=== PATIENT | female | born 1975 | race African-American/Black ===

== ENCOUNTER 2019-10-15 16:55 | Emergency (ER) | payer MEDICAID ==
[2019-10-15] MEDS ORDERED: DICYCLOMINE HCL 20 MG TABLET PO ONE (17:10)
[2019-10-15] MEDS ORDERED: NORMAL SALINE 1000 ML 1,000 ML IV ONE (17:11)
[2019-10-15] MEDS ORDERED: ONDANSETRON HCL INJ/PF 4 MG/2 ML SDV IV ONE (17:12)
--- NOTE | 2019-10-15 17:13 | ER Document Report ---
ED Medical Screen (RME) - General Chief Complaint: Abdominal Pain Stated Complaint: ABDOMINAL PAIN Time Seen by Provider: 10/15/19 17:00 Notes: Patient is a 44-year-old female with a past history of a hysterectomy who presents emergency department with a chief complaint of abdominal pain. Patient states that her symptoms started yesterday. Patient states that she feels her abdomen is cramping. States that her pain is in her mid abdomen, just above her umbilicus. States that she has some nausea, but has not vomited. States that she had a small bowel movement yesterday. Patient also admits to having some vaginal irritation during coitus the other day. Exam: Moderately tender mid upper abdomen. I have greeted and performed a rapid initial assessment of this patient. A comprehensive ED assessment and evaluation of the patient, analysis of test results and completion of medical decision making process will be conducted by an additional ED providers. TRAVEL OUTSIDE OF THE [place] IN LAST 30 DAYS: No - Related Data Allergies/Adverse Reactions: No Known Allergies Allergy (Verified 07/28/14 14:05) Past Medical History - Past Medical History Cardiac Medical History: Pulmonary Medical History: Reports: Hx Bronchitis Denies: Hx Asthma Neurological Medical History: GI Medical History: Reports: Hx Gastroesophageal Reflux Disease, Hx Colonoscopy, Hx Endoscopy Musculoskeltal Medical History: Infectious Medical History: Past Surgical History: Reports: Hx Section - 4, Hx Cholecystectomy - 2008, Hx Tubal Ligation - Immunizations Immunizations up to date: No Hx Diphtheria, Pertussis, Tetanus Vaccination: No Physical Exam - Vital signs Vitals: Temp Pulse Resp BP Pulse Ox 98.4 F 90 20 168/113 H 99 10/15/19 16:59 10/15/19 16:59 10/15/19 16:59 10/15/19 16:59 10/15/19 16:59 Course - Vital Signs Vital signs: Temp Pulse Resp BP Pulse Ox 98.4 F 90 20 151/104 H 99 10/15/19 16:59 10/15/19 16:59 10/15/19 16:59 10/15/19 17:01 10/15/19 16:59
--- NOTE | 2019-10-15 17:51 | ER Document Report ---
ED GI/ - General Chief Complaint: Abdominal Pain Stated Complaint: ABDOMINAL PAIN Time Seen by Provider: 10/15/19 17:00 Mode of Arrival: Ambulatory Information source: Patient Notes: 44-year-old female past medical history significant for hypertension, cervical cancer presents to the emergency room complaining of generalized sharp and cramping abdominal pain that started last night. States pain has been constant. Slightly improved today. Denies any nausea, vomiting, no fevers. No urinary symptoms. No recent travel. No COVID-19 exposure. States she took Pepto- Bismol and Tylenol with some relief. Eating and drinking normally. Denies any vaginal discharge is complaining of vaginal irritation. TRAVEL OUTSIDE OF THE [place] IN LAST 30 DAYS: No - Related Data Allergies/Adverse Reactions: No Known Allergies Allergy (Verified 07/28/14 14:05) Past Medical History - General Information source: Patient - Social History Smoking Status: Never Smoker Frequency of alcohol use: None Drug Abuse: None Family History: Reviewed & Not Pertinent Patient has homicidal ideation: No - Past Medical History Cardiac Medical History: Pulmonary Medical History: Reports: Hx Bronchitis Denies: Hx Asthma Neurological Medical History: GI Medical History: Reports: Hx Gastroesophageal Reflux Disease, Hx Colonoscopy, Hx Endoscopy Musculoskeletal Medical History: Infectious Medical History: Past Surgical History: Reports: Hx Section - 4, Hx Cholecystectomy - 2009, Hx Tubal Ligation - Immunizations Immunizations up to date: No Hx Diphtheria, Pertussis, Tetanus Vaccination: No Review of Systems - Review of Systems Constitutional: No symptoms reported Cardiovascular: No symptoms reported Respiratory: No symptoms reported Gastrointestinal: Abdominal pain. denies: Diarrhea, Nausea, Vomiting, Constipation Genitourinary: No symptoms reported Musculoskeletal: No symptoms reported Skin: No symptoms reported Neurological/Psychological: No symptoms reported -: Yes All other systems reviewed and negative Physical Exam - Vital signs Vitals: Temp Pulse Resp BP Pulse Ox 98.4 F 90 20 168/113 H 99 10/15/19 16:59 10/15/19 16:59 10/15/19 16:59 10/15/19 16:59 10/15/19 16:59 - General General appearance: Appears well, Alert In distress: Mild - HEENT Head: Normocephalic, Atraumatic Eyes: Normal Pupils: PERRL - Respiratory Respiratory status: No respiratory distress Chest status: Nontender Breath sounds: Normal Chest palpation: Normal - Cardiovascular Rhythm: Regular Heart sounds: Normal auscultation Murmur: No - Abdominal Inspection: Normal Distension: No distension Bowel sounds: Normal Tenderness: Tender - Generalized tenderness on palpation, no guarding, no rebound Organomegaly: No organomegaly - Genitourinary External exam: Normal Speculum exam: Vaginal discharge - Thick white discharge was noted in the vaginal vault. Status post hysterectomy. No inflammation to vaginal cuff Vaginal bleeding: None Bimanuel exam: Normal - Back Back: Normal, Nontender. No: CVA tenderness - Neurological Neuro grossly intact: Yes Cognition: Normal Orientation: AAOx4 [place] Coma Scale Eye Opening: Spontaneous [place] Coma Scale Verbal: Oriented [place] Coma Scale Motor: Obeys Commands [place] Coma Scale Total: 15 Speech: Normal Motor strength normal: LUE, RUE, LLE, RLE Sensory: Normal - Skin Skin Temperature: Warm Skin Moisture: Dry Skin Color: Normal Course - Re-evaluation Re-evalutation: 10/15/19 19:57 Patient is resting comfortably all test results were reviewed with the patient. Discussed need for pelvic exam secondary to elevated white count, urine with leukocytosis. Patient is agreeable to pelvic exam. 10/15/19 21:16 Pelvic exam completed. Patient aware that we are waiting on the vaginal swabs prior to discharge. 10/15/19 21:46 Test results were reviewed with the patient. She was counseled on the importance of follow-up outpatient with her primary care physician to discuss all the abnormal findings that were noted on her CT scan. Take tramadol as prescribed for her pain. E force was reviewed okay to write for prescriptions. No history of narcotic abuse. Patient was given strict return to the emergency room guidelines. Return for any new or worsening symptoms. All questions were answered. Patient verbalized understanding and agrees with plan of care. - Vital Signs Vital signs: Temp Pulse Resp BP Pulse Ox 97.3 F 79 16 153/118 H 97 10/15/19 22:12 10/15/19 22:12 10/15/19 22:12 10/15/19 22:12 10/15/19 22:12 - Laboratory Result Diagrams: 10/15/19 17:40 10/15/19 17:40 Laboratory results interpreted by me: 10/15/19 10/15/19 10/15/19 17:40 17:40 17:40 WBC 13.2 H RDW 14.6 H Eos % (Auto) 7.8 H Absolute Eos (auto) 1.0 H Total Protein 8.4 H Lipase 470.1 H Urine Protein 30 H Ur Leukocyte Esterase SMALL H - Diagnostic Test Radiology reviewed: Reports reviewed Discharge - Discharge Clinical Impression: Right adrenal mass, Left ovarian cyst, Calculus of right kidney, Diverticulosis, Elevated lipase Condition: Stable Disposition: HOME, SELF-CARE Instructions: Abdominal Pain ([facility]), Kidney Stone ([facility]), Ovarian Cyst ([facility]) Prescriptions: Tramadol HCl [Ultram 50 mg Tablet] 50 mg PO Q6HP PRN #12 tab PRN Reason: For Pain
[2019-10-15 18:17] LABS: ABSOLUTE LYMPHOCYTES (AUTO) 3.6 10^3/uL (0.5-4.7); ABSOLUTE NEUT (AUTO) 7.6 10^3/uL (1.7-8.2); BASOPHILS % (AUTO) 0.2 % (0-2); EOSINOPHILS % (AUTO) 7.8 % (0-6); HEMATOCRIT 41.6 % (36.0-47.0); HEMOGLOBIN 13.7 g/dL (12.0-15.5); LYMPHOCYTES % (AUTO) 27.5 % (13-45); MEAN CORPUSCULAR HEMOGLOBIN 29.2 pg (27.0-33.4); MEAN CORPUSCULAR HGB CONC 32.9 g/dL (32.0-36.0); MEAN CORPUSCULAR VOLUME 89 fl (80-97); MONOCYTES % (AUTO) 7.3 % (3-13); PLATELET COUNT 336 10^3/uL (150-450); RED BLOOD COUNT 4.69 10^6/uL (3.72-5.28); RED CELL DISTRIBUTION WIDTH 14.6 % (11.5-14.0); SEGMENTED NEUTROPHILS % (AUTO) 57.2 % (42-78); TOTAL CELLS COUNTED % (AUTO) 100 %; WHITE BLOOD COUNT 13.2 10^3/uL (4.0-10.5)
[2019-10-15 18:26] LABS: APPEARANCE,URINE SLIGHTLY-CLOUDY; BILIRUBIN,URINE NEGATIVE (NEGATIVE); COLOR,URINE YELLOW; GLUCOSE, URINE NEGATIVE (NEGATIVE); KETONES,URINE NEGATIVE (NEGATIVE); LEUKOCYTE ESTERASE,URINE SMALL (NEGATIVE); NITRITE,URINE NEGATIVE (NEGATIVE); PROTEIN,URINE 30 mg/dL (NEGATIVE); URINE SPECIFIC GRAVITY 1.021; UROBILINOGEN,URINE NEGATIVE mg/dL (<2.0)
[2019-10-15 18:33] LABS: ALBUMIN 4.6 g/dL (3.5-5.0); ALKALINE PHOSPHATASE 83 U/L (38-126); ANION GAP 7 (5-19); ASPARTATE AMINO TRANSFERASE 24 U/L (14-36); BILIRUBIN,TOTAL 0.3 mg/dL (0.2-1.3); BLOOD UREA NITROGEN 19 mg/dL (7-20); CALCIUM 10.2 mg/dL (8.4-10.2); CARBON DIOXIDE 29 mmol/L (22-30); CHLORIDE 102 mmol/L (98-107); GLUCOSE 83 mg/dL (75-110); POTASSIUM 4.7 mmol/L (3.6-5.0); TOTAL PROTEIN 8.4 g/dL (6.3-8.2)
--- NOTE | 2019-10-15 19:33 | RADIOLOGY REPORT (SQ) ---
EXAM DESCRIPTION: CT ABD/PELVIS WITH IV ONLY IMAGES COMPLETED DATE/TIME: 10/15/2019 7:00 pm REASON FOR STUDY: abdominal pain Diffuse abdominal pain. COMPARISON: CT abdomen and pelvis 07/28/2014 TECHNIQUE: CT scan of the abdomen and pelvis performed using helical scanning technique with dynamic intravenous contrast injection. No oral contrast. Images reviewed with lung, soft tissue, and bone windows. Reconstructed coronal and sagittal MPR images reviewed. Delayed images for evaluation of the urinary system also acquired. All images stored on PACS. All CT scanners at this facility use dose modulation, iterative reconstruction, and/or weight based d osing when appropriate to reduce radiation dose to as low as reasonably achievable (ALARA). [facility]: Dose Right [facility]: CareDose [facility]: Dose Right [facility]: Teradose 4D [facility]: RVX CONTRAST TYPE AND DOSE: contrast/concentration: Isovue 350.00 mmol/ml; Total Contrast Delivered: 100 .0 ml; Total Saline Delivered: 72.0 ml RENAL FUNCTION: None required. The patient is less than 50 years old. RADIATION DOSE: CT Rad equipment meets quality standard of care and radiation dose reduction techniq ues were employed. CTDIvol: 16.7 - 19.8 mGy. DLP: 1924 mGy-cm.. LIMITATIONS: None. FINDINGS: LOWER CHEST: No consolidation or pleural. LIVER: Enlarged, measuring 20 cm cranio caudally. No masses. No dilated ducts. SPLEEN: Normal size. No focal lesions. PANCREAS: No significant calcifications. No adjacent inflammation or peripancreatic fluid collections . Pancreatic duct not dilated. GALLBLADDER: Surgically absent. ADRENAL GLANDS: There is a 2.7 x 2.7 cm hypodense lesion at the right adrenal gland, this measures 2. 2 x 2[address] abdomen and pelvis 07/28/2014. The left adrenal gland is unremarkable. RIGHT KIDNEY AND URETER: No solid masses. Nonobstructing calculi at the right kidney measuring 2-3 mm. No hydronephrosis or hydroureter. LEFT KIDNEY AND URETER: No solid masses. No significant calcifications. No hydronephrosis or hydr oureter. AORTA AND VESSELS: No abdominal aortic aneurysm or evidence for acute dissection. RETROPERITONEUM: No retroperitoneal adenopathy, hemorrhage or masses. BOWEL AND PERITONEAL CAVITY: No dilated bowel loops to suggest obstruction. No focal inflammatory ch anges. No free fluid or free air. APPENDIX: Normal. PELVIS: The urinary bladder is partially distended. The uterus is surgically absent. There is a 2.7 cm cyst at the right ovary. No free fluid ABDOMINAL WALL: Postsurgical changes are noted at the anterior abdominal wall. There is a ventral he rnia at the anterior lower abdominal wall with a small bowel loop protruding into the hernia defect. Small fat containing umbilical hernia. BONES: Multilevel degenerative changes at the spine. IMPRESSION: 1. No acute findings. 2. Right nephrolithiasis. 3. 2.7 cm cyst at the right ovary. 4. Colonic diverticulosis. 5. Mild interval increase in the indeterminate lesion at the right adrenal gland. Nonemergent dedica delbert adrenal CT or MRI recommended for further evaluation. 6. Hepatomegaly. 7. Ventral hernia at the anterior lower abdominal wall with a small bowel loop protruding into the h ernia defect. No evidence for bowel obstruction. TECHNICAL DOCUMENTATION: JOB ID: [id number] OR-64 Quality ID # [id number]: Final reports with documentation of one or more dose reduction techniques (e.g., Au tomated exposure control, adjustment of the mA and/or kV according to patient size, use of iterative reconstruction technique) 2010 [employer]- All Rights Reserved Reading location - IP/workstation name: [email or web address]
[2019-10-15 21:24] LABS: RBCS (WET MOUNT) NO RBCS SEEN; T.VAGINALIS (WET MOUNT) NO TRICHOMONAS SEEN; WBCS (WET MOUNT) RARE WBCS SEEN; YEAST (WET MOUNT) NO YEAST SEEN
[2019-10-15 22:15] VITALS: BP 153/118
[2019-10-15 22:48] LABS: CHLAM PCR NOT DETECTED (NOT DETECT)
== END 2019-10-15 22:12 | disposition home or self-care (01) ==
LOC: ER 16:55
DX: N20.0 Calculus of kidney (principal); E27.8 Other specified disorders of adrenal gland; N83.202 Unspecified ovarian cyst, left side; K57.90 Diverticulosis of intestine, part unspecified, without perforation or abscess without bleeding; R79.89 Other specified abnormal findings of blood chemistry
CPT/HCPCS: 99284; 96361; 96374; 36415; 87210; 83690; 85025; 80053; 81001; 87491; 87591; 74177; J3490; J2405; J7030

== ENCOUNTER 2019-12-10 15:25 | Emergency (ER) | payer MEDICAID ==
--- NOTE | 2019-12-10 16:29 | ER Document Report ---
ED Medical Screen (RME) - General Chief Complaint: Headache Stated Complaint: HEADACHE,COUGH,NAUSEA Time Seen by Provider: 12/10/19 16:13 Mode of Arrival: Ambulatory Information source: Patient Notes: HPI; 44-year-old female presents to the emergency room complaining of a cough with shortness of breath for the past month. States is gotten progressively worse over the past week. She denies any fevers. No recent travel. No COVID- 19 exposure. States she is been using [id number] NyQuil without relief. PE: Alert and oriented x3. Lungs scattered rhonchi no wheezes no rales. Heart: Regular rate rhythm without murmurs, rubs, gallops. I have greeted and performed a rapid initial assessment of this patient. A comprehensive ED assessment and evaluation of the patient, analysis of test results and completion of the medical decision making process will be conducted by additional ED providers. I have specifically instructed the patient or family members with the patient to immediately return to any nursing staff should anything change in the patient's condition or with their chief complaint. TRAVEL OUTSIDE OF THE [place] IN LAST 30 DAYS: No - Related Data Allergies/Adverse Reactions: No Known Allergies Allergy (Verified 07/28/14 14:05) Past Medical History - Past Medical History Cardiac Medical History: Pulmonary Medical History: Reports: Hx Bronchitis Denies: Hx Asthma Neurological Medical History: GI Medical History: Reports: Hx Gastroesophageal Reflux Disease, Hx Colonoscopy, Hx Endoscopy Musculoskeltal Medical History: Infectious Medical History: Past Surgical History: Reports: Hx Section - 4, Hx Cholecystectomy - 2009, Hx Tubal Ligation - Immunizations Immunizations up to date: No Hx Diphtheria, Pertussis, Tetanus Vaccination: No Physical Exam - Vital signs Vitals: Temp Pulse Resp BP Pulse Ox 98.9 F 84 20 157/112 H 95 12/10/19 15:59 12/10/19 15:59 12/10/19 15:59 12/10/19 15:59 12/10/19 15:59 Course - Vital Signs Vital signs: Temp Pulse Resp BP Pulse Ox 98.9 F 84 20 157/112 H 95 12/10/19 15:59 12/10/19 15:59 12/10/19 15:59 12/10/19 15:59 12/10/19 15:59
[2019-12-10 18:13] LABS: ABSOLUTE BASOPHILS # (AUTO) 0.1 10^3/uL (0.0-0.2); ABSOLUTE EOSINOPHILS # (AUTO) 0.9 10^3/uL (0.0-0.6); ABSOLUTE LYMPHOCYTES (AUTO) 2.3 10^3/uL (0.5-4.7); ABSOLUTE MONOCYTES (AUTO) 0.6 10^3/uL (0.1-1.4); ABSOLUTE NEUT (AUTO) 5.7 10^3/uL (1.7-8.2); BASOPHILS % (AUTO) 0.9 % (0-2); EOSINOPHILS % (AUTO) 9.2 % (0-6); HEMATOCRIT 40.6 % (36.0-47.0); HEMOGLOBIN 14.2 g/dL (12.0-15.5); LYMPHOCYTES % (AUTO) 24.3 % (13-45); MEAN CORPUSCULAR HEMOGLOBIN 31.4 pg (27.0-33.4); MEAN CORPUSCULAR VOLUME 90 fl (80-97); MONOCYTES % (AUTO) 6.2 % (3-13); PLATELET COUNT 354 10^3/uL (150-450); RED BLOOD COUNT 4.52 10^6/uL (3.72-5.28); SEGMENTED NEUTROPHILS % (AUTO) 59.4 % (42-78); TOTAL CELLS COUNTED % (AUTO) 100 %; WHITE BLOOD COUNT 9.7 10^3/uL (4.0-10.5)
[2019-12-10 18:26] LABS: ALBUMIN 4.5 g/dL (3.5-5.0); ALKALINE PHOSPHATASE 97 U/L (38-126); ANION GAP 10 (5-19); ASPARTATE AMINO TRANSFERASE 29 U/L (14-36); BILIRUBIN,DIRECT 0.2 mg/dL (0.0-0.4); BILIRUBIN,TOTAL 0.3 mg/dL (0.2-1.3); BLOOD UREA NITROGEN 18 mg/dL (7-20); CARBON DIOXIDE 29 mmol/L (22-30); CHLORIDE 103 mmol/L (98-107); GLUCOSE 95 mg/dL (75-110); POTASSIUM 3.8 mmol/L (3.6-5.0); TOTAL PROTEIN 8.4 g/dL (6.3-8.2)
--- NOTE | 2019-12-10 20:28 | RADIOLOGY REPORT (SQ) ---
EXAM DESCRIPTION: X-ray, single view of the chest CLINICAL HISTORY: 44 years Female, cough COMPARISON: Two views of the chest May 10, 2012 FINDINGS: Exam is overpenetrated. Lungs: Lungs are clear. No pneumonia or edema. No pneumothorax or pleural effusion. Mediastinum: Cardiac and mediastinal silhouette are normal. Bones: Osseous structures are normal. IMPRESSION: No acute process. No significant interval change.
[2019-12-10 21:07] VITALS: BP 176/116
[2019-12-10] MEDS ORDERED: CETIRIZINE 10 MG TABLET PO ONE (21:30)
[2019-12-10] MEDS ORDERED: PREDNISONE 20 MG TABLET PO ONE (21:30)
[2019-12-10] MEDS ORDERED: BENZONATATE 100 MG CAPSULE PO ONE (21:30)
[2019-12-10] MEDS ORDERED: IPRATROPIUM/ALBUTEROL 0.5-2.5 MG/3 ML AMPUL NEB ONE (21:30)
[2019-12-10] MEDS ORDERED: ACETAMINOPHEN 325 MG TABLET PO ONE (21:31)
--- NOTE | 2019-12-10 21:32 | ER Document Report ---
ED Headache - General Chief Complaint: Cough Stated Complaint: HEADACHE,COUGH,NAUSEA Time Seen by Provider: 12/10/19 16:13 Mode of Arrival: Ambulatory Notes: Patient is a 44-year-old female with a history of hypertension who presents emergency department with a cough, headache, congestion, and generally not feeling well for the past about month. She states that she continues to cough. She has not seen her primary care provider regards to this issue. Denies any contact with any when he was tested positive for COVID-19. Patient has a history of bronchitis in the past. States that she has been coughing so much, gives her headache. She has not taken any Tylenol pain or headache. TRAVEL OUTSIDE OF THE [place] IN LAST 30 DAYS: No - Related Data Allergies/Adverse Reactions: No Known Allergies Allergy (Verified 07/28/14 14:05) Home Medications: has meds Past Medical History - General Information source: Patient - Social History Smoking Status: Never Smoker Frequency of alcohol use: None Drug Abuse: None Family History: Reviewed & Not Pertinent - Past Medical History Cardiac Medical History: Reports: Hx Hypertension Pulmonary Medical History: Reports: Hx Bronchitis Denies: Hx Asthma Neurological Medical History: GI Medical History: Reports: Hx Gastroesophageal Reflux Disease, Hx Colonoscopy, Hx Endoscopy Musculoskeletal Medical History: Infectious Medical History: Past Surgical History: Reports: Hx Section - 5, Hx Cholecystectomy - 2009, Hx Hysterectomy, Hx Tubal Ligation - Immunizations Immunizations up to date: No Hx Diphtheria, Pertussis, Tetanus Vaccination: No Review of Systems - Review of Systems Notes: REVIEW OF SYSTEMS: CONSTITUTIONAL : Denies recent illness. Denies recent unintentional weight loss. Denies fever, chills, or sweats. EENT: See HPI. CARDIOVASCULAR: Denies chest pain. RESPIRATORY: See HPI. GASTROINTESTINAL: Denies nausea, vomiting, and diarrhea. Denies abdominal pain. Denies constipation. GENITOURINARY: Denies difficulty urinating, burning, blood in urine, urgency or frequency. MUSCULOSKELETAL: Denies neck and back pain. Denies joint pain or swelling. SKIN: Denies rash, itchiness, or lesions HEMATOLOGIC : Denies easy bruising or bleeding. LYMPHATIC: Denies swollen, painful, enlarged glands. NEUROLOGICAL: Denies no numbness or tingling denies weakness. Denies headache. Denies altered mental status. Denies alteration in speech. PSYCHIATRIC: Denies stress, anxiety, alteration in sleep patterns, or depres roxanna. All other systems reviewed and negative. Physical Exam - Vital signs Vitals: Temp Pulse Resp BP Pulse Ox 98.9 F 84 20 157/112 H 95 12/10/19 15:59 12/10/19 15:59 12/10/19 15:59 12/10/19 15:59 12/10/19 15:59 - Notes Notes: PHYSICAL EXAMINATION: GENERAL: Appears well, healthy, well-nourished, no acute distress. HEAD: Normocephalic, atraumatic. EYES: PERRL, conjunctiva normal, all extraocular movements intact, sclera nonicteric ENT: Moist mucous membranes. NECK: Supple, no noticeable swelling, redness, rash. Normal range of motion. LUNGS: Slight expiratory wheezes noted throughout all lung cordon. CARDIOVASCULAR: S1-S2, regular rate, regular rhythm. Radial pulses 2+, normal. ABDOMEN: Normoactive bowel sounds. Soft, nontender, no guarding, no rebound tenderness, and no masses palpated. EXTREMITIES: Normal strength and range of motion, no pitting or edema. No cyanosis. NEUROLOGICAL: Moves all extremities upon command. Strength 5/5 in all extremities. PSYCH: Normal mood, normal affect. SKIN: Warm, dry. No rash, lesions, ulcerations noted. Normal skin turgor. Course - Re-evaluation Re-evalutation: 12/10/19 22:46 Patient states that she feels better after receiving duo nebs, Tessalon Perles, prednisone, and cetirizine. We will treat the patient for bronchitis. Advised patient to be tested for COVID on an outpatient basis. Recommended COVID testing here, but she refused. Follow-up precautions were given. Verbal discharge instructions were given to the patient. They verbalized understanding. They are stable for discharge. - Vital Signs Vital signs: Temp Pulse Resp BP Pulse Ox 98.9 F 75 20 176/116 H 96 12/10/19 20:58 12/10/19 20:58 12/10/19 20:58 12/10/19 20:58 12/10/19 20:58 - Laboratory Result Diagrams: 12/10/19 17:30 12/10/19 17:30 Laboratory results interpreted by me: 12/10/19 12/10/19 17:30 17:30 Eos % (Auto) 9.2 H Absolute Eos (auto) 0.9 H ALT 40 H Total Protein 8.4 H Discharge - Discharge Clinical Impression: Cough Headache Qualifiers: Headache type: unspecified Headache chronicity pattern: acute headache Intractability: not intractable Qualified Code(s): R51.9 - Headache, unspecified Condition: Stable Disposition: HOME, SELF-CARE Additional Instructions: You were seen for symptoms most consistent with bronchitis. This can take up to 12 weeks to fully resolve. This is generally due to a viral infection. Please follow-up with your primary doctor in the next 2-3 days. Return if you develop worsening cough, vomiting, fever >100.4, pass out, begin coughing blood, or have any other symptoms that are concerning to you. Please use the medications prescribed today as directed. I recommend that you get tested for COVID-19 on an outpatient basis since you did not get tested here. Follow-up with your primary care provider on Thursday. Prescriptions: Cetirizine HCl [All Day Allergy] 10 mg PO DAILY #30 tablet Prednisone [Deltasone 20 mg Tablet] 3 tab PO DAILY 5 Days #15 tablet Fluticasone Propionate [Flonase Nasal [place] 50 Mcg/[place] 16 gm] 2 sprays NASL DAILY #1 inhaler Benzonatate [Tessalon Perles 100 mg Capsule] 100 mg PO Q8HP PRN #40 capsule PRN Reason:
[2019-12-10 21:44] LABS: A TYPE INFLUENZA AG NEGATIVE (NEGATIVE); B INFLUENZA AG NEGATIVE (NEGATIVE)
[2019-12-10] MEDS ORDERED: ALBUTEROL SULFATE HFA (90 MCG/PUFF) 8 GM MDI (1 MDI/ER DISP) IH PRN (23:05)
== END 2019-12-10 23:36 | disposition home or self-care (01) ==
LOC: ER 15:25
DX: J40 Bronchitis, not specified as acute or chronic (principal); R05 Cough; R51.9 Headache, unspecified; I10 Essential (primary) hypertension; Z79.899 Other long term (current) drug therapy
CPT/HCPCS: 94640; 99284; 36415; 85025; 80053; 87804; 71045; J3490 ×4; J7512

== ENCOUNTER 2019-12-30 20:31 | Emergency (ER) | payer MEDICAID ==
[2019-12-30] MEDS ORDERED: IPRATROPIUM/ALBUTEROL 0.5-2.5 MG/3 ML AMPUL NEB ONE (21:07)
[2019-12-30] MEDS ORDERED: PREDNISONE 20 MG TABLET PO ONE (21:07)
--- NOTE | 2019-12-30 21:09 | ER Document Report ---
ED Medical Screen (RME) - General Chief Complaint: Shortness Of Breath Stated Complaint: SHORTNESS OF BREATH/COUGH/NAUSEA Time Seen by Provider: 12/30/19 21:01 Information source: Patient Notes: Patient presents complaining of cough with shortness of breath for the past week. Patient reports nausea without any vomiting or diarrhea. Patient complains of chest pain with coughing only. Patient denies any fever. Patient states she was treated for bronchitis earlier this month and had finished her steroids. Patient reports a history of hypertension. I have greeted and performed a rapid initial assessment of this patient. A comprehensive ED assessment and evaluation of the patient, analysis of test results and completion of the medical decision making process will be conducted by additional ED providers. TRAVEL OUTSIDE OF THE [place] IN LAST 30 DAYS: No - Related Data Allergies/Adverse Reactions: No Known Allergies Allergy (Verified 07/28/14 14:05) Past Medical History - Past Medical History Cardiac Medical History: Reports: Hx Hypertension Pulmonary Medical History: Reports: Hx Bronchitis Denies: Hx Asthma Neurological Medical History: GI Medical History: Reports: Hx Gastroesophageal Reflux Disease, Hx Colonoscopy, Hx Endoscopy Musculoskeltal Medical History: Infectious Medical History: Past Surgical History: Reports: Hx Section - 5, Hx Cholecystectomy - 2008, Hx Hysterectomy, Hx Tubal Ligation - Immunizations Immunizations up to date: No Hx Diphtheria, Pertussis, Tetanus Vaccination: No Physical Exam - Vital signs Vitals: Temp Pulse Resp BP Pulse Ox 98.3 F 97 16 169/117 H 97 12/30/19 20:37 12/30/19 20:37 12/30/19 20:37 12/30/19 20:37 12/30/19 20:37 - Respiratory Respiratory status: No respiratory distress Breath sounds: Nonproductive cough, Wheezing Course - Vital Signs Vital signs: Temp Pulse Resp BP Pulse Ox 98.3 F 97 16 169/117 H 97 12/30/19 20:37 12/30/19 20:37 12/30/19 20:37 12/30/19 20:37 12/30/19 20:37
--- NOTE | 2019-12-30 22:15 | ER Document Report ---
ED Respiratory Problem - General Chief Complaint: Shortness Of Breath Stated Complaint: SHORTNESS OF BREATH/COUGH/NAUSEA Time Seen by Provider: 12/30/19 21:01 Primary Care Provider: KYLAH MITCHELL PA-C [Primary Care Provider] - Follow up as needed Notes: CHIEF COMPLAINT: Cough and wheezing for 5 days HPI: 44-year-old female who does not smoke presenting for cough and wheezing for 5 days was here for something similar a month ago states that she took the medications and got better. No chest pain. Has had significant coughing. Went to her PCP 2 days ago was given an albuterol inhaler but has not had resolution of the coughing episodes. Patient states she did take her blood pressure medications today. ROS: See HPI - all other systems were reviewed and are otherwise negative Constitutional: no fever Eyes: no drainage, no blurred vision ENT: no runny nose, no sore throat Cardiovascular: no chest pain Resp: + SOB, + cough GI: no vomiting, no diarrhea, no abdominal pain : no dysuria Integumentary: no rash Allergy: no hives Musculoskeletal: no extremity pain or swelling Neurological: no numbness/tingling, no weakness MEDICATIONS: I agree with the patient medications as charted by the RN. ALLERGIES: I agree with the allergies as charted by the RN. PAST MEDICAL HISTORY/PAST SURGICAL HISTORY: Reviewed and agree as charted by RN. SOCIAL HISTORY: Reviewed and agree as charted by RN. FAMILY HISTORY: No significant familial comorbid conditions directly related to patient complaint EXAM: Reviewed vital signs as charted by RN. CONSTITUTIONAL: Alert and oriented and responds appropriately to questions. Well-appearing; well-nourished HEAD: Normocephalic; atraumatic EYES: PERRL; Conjunctivae clear, sclerae non-icteric ENT: normal nose; no rhinorrhea; moist mucous membranes; pharynx without lesions noted, no uvula edema or deviation, no tonsillar hypertrophy, phonation normal NECK: Supple without meningismus; non-tender; no cervical lymphadenopathy, no masses CARD: RRR; no murmurs, no clicks, no rubs, no gallops; symmetric distal pulses RESP: Normal chest excursion without splinting or tachypnea; breath sounds noted to have fine expiratory wheezing in all lung cordon, no rhonchi, no rales, pulse oximetry 97% on room air not hypoxic ABD/GI: Normal bowel sounds; non-distended; soft, non-tender, no rebound, no guarding; no palpable organomegaly or masses. BACK: The back appears normal and is non-tender to palpation, there is no CVA tenderness EXT: Normal ROM in all joints; non-tender to palpation; no cyanosis, no effusions, no edema SKIN: Normal color for age and race; warm; dry; good turgor; no acute lesions noted NEURO: Moves all extremities equally; Motor and sensory function intact PSYCH: The patient's mood and manner are appropriate. Grooming and personal hygiene are appropriate. MDM: 44-year-old female presenting with upper respiratory symptoms for 5 days. Active wheezing noted. Breathing treatment and steroids ordered via triage process we will plan to reassess. She has no chest pain suggesting ACS. Chest x-ray does not show evidence of infiltrate on my review. Patient was moderately hypertensive here has history of hypertension states she did take her blood pressure medications. Will have nursing manually rechecked pressure. TRAVEL OUTSIDE OF THE [place] IN LAST 30 DAYS: No - Related Data Allergies/Adverse Reactions: No Known Allergies Allergy (Verified 07/28/14 14:05) Past Medical History - General Information source: Patient - Social History Smoking Status: Unknown if Ever Smoked Family History: Reviewed & Not Pertinent - Past Medical History Cardiac Medical History: Reports: Hx Hypertension Pulmonary Medical History: Reports: Hx Bronchitis Denies: Hx Asthma Neurological Medical History: GI Medical History: Reports: Hx Gastroesophageal Reflux Disease, Hx Colonoscopy, Hx Endoscopy Musculoskeletal Medical History: Infectious Medical History: Past Surgical History: Reports: Hx Section - , Hx Cholecystectomy - 2008, Hx Hysterectomy, Hx Tubal Ligation - Immunizations Immunizations up to date: No Hx Diphtheria, Pertussis, Tetanus Vaccination: No Physical Exam - Vital signs Vitals: Temp Pulse Resp BP Pulse Ox 98.3 F 97 16 169/117 H 97 12/30/19 20:37 12/30/19 20:37 12/30/19 20:37 12/30/19 20:37 12/30/19 20:37 Course - Re-evaluation Re-evalutation: 12/30/19 23:09 Patient remains significantly hypertensive. States she took her blood pressure medication between 5 and 6 PM tonight. Does not have active chest pain but given her significant hypertension will obtain 1 set of screening cardiac labs as well as an EKG which was not done out of the triage process. 12/31/19 01:44 EKG had to be repeated as initial and had leads reversed. Ventricular rate of 86 with a normal sinus rhythm no other ectopy. Interpreted by emergency department physicians. NH 192 QT 372 QTC 445. Mild LVH is noted. Patient's blood pressure is much improved her wheezing is essentially resolved after breathing treatment she feels much better will discharge home with steroids to continue on albuterol inhaler follow-up PCP about her blood pressure - Vital Signs Vital signs: Temp Pulse Resp BP Pulse Ox 98.3 F 97 16 156/98 H 97 12/30/19 20:37 12/30/19 20:37 12/30/19 20:37 12/31/19 01:28 12/30/19 20:37 - Laboratory Result Diagrams: 12/31/19 00:16 12/31/19 00:16 Laboratory results interpreted by me: 12/31/19 12/31/19 00:16 00:16 RDW 14.6 H [place] % (Auto) 2.6 L Glucose 127 H Discharge - Discharge Clinical Impression: Acute bronchospasm Hypertension Qualifiers: Hypertension type: essential hypertension Qualified Code(s): I10 - Essential (primary) hypertension Condition: Stable Disposition: HOME, SELF-CARE Additional Instructions: Continue to use your albuterol inhaler 2 puffs every 4 hours for shortness of breath and wheezing. Take the steroids as prescribed. Follow-up with your primary care provider for reevaluation of your blood pressure as it was noted to be elevated today. Return for any worsening condition Prescriptions: Prednisone [Deltasone 20 mg Tablet] 2 tab PO DAILY 5 Days #10 tablet Referrals: KYLAH MITCHELL PA-C [Primary Care Provider] - Follow up as needed
--- NOTE | 2019-12-30 22:32 | RADIOLOGY REPORT (SQ) ---
EXAM DESCRIPTION: XR CHEST 1 VIEW COMPLETED DATE/TME: 12/30/2019 21:08 CLINICAL HISTORY: 44 years, Female, cough COMPARISON: Prior study from 12/10/2019 NUMBER OF VIEWS: One TECHNIQUE: Single frontal view of the chest was obtained portably LIMITATIONS: None. FINDINGS: Cardiac and mediastinal contours are stable. Lungs are clear. No pleural effusion or pneumothorax. IMPRESSION: No acute disease. copyright 2010 [employer]- All Rights Reserved
[2019-12-30] MEDS: ALBUTEROL SULFATE 0.083% NEB 2.5 MG/3 ML AMPUL NEB SCH ×2 (22:45→23:06)
[2019-12-30] MEDS ORDERED: CLONIDINE HCL 0.1 MG TABLET PO ONE (23:06)
[2019-12-31 00:48] LABS: ABSOLUTE BASOPHILS # (AUTO) 0.1 10^3/uL (0.0-0.2); ABSOLUTE EOSINOPHILS # (AUTO) 0.5 10^3/uL (0.0-0.6); ABSOLUTE LYMPHOCYTES (AUTO) 1.8 10^3/uL (0.5-4.7); ABSOLUTE MONOCYTES (AUTO) 0.3 10^3/uL (0.1-1.4); ABSOLUTE NEUT (AUTO) 7.7 10^3/uL (1.7-8.2); BASOPHILS % (AUTO) 0.6 % (0-2); EOSINOPHILS % (AUTO) 4.8 % (0-6); HEMATOCRIT 42.6 % (36.0-47.0); HEMOGLOBIN 14.5 g/dL (12.0-15.5); LYMPHOCYTES % (AUTO) 17.4 % (13-45); MEAN CORPUSCULAR HEMOGLOBIN 29.7 pg (27.0-33.4); MEAN CORPUSCULAR VOLUME 87 fl (80-97); MONOCYTES % (AUTO) 2.6 % (3-13); PLATELET COUNT 279 10^3/uL (150-450); RED BLOOD COUNT 4.88 10^6/uL (3.72-5.28); RED CELL DISTRIBUTION WIDTH 14.6 % (11.5-14.0); SEGMENTED NEUTROPHILS % (AUTO) 74.6 % (42-78); TOTAL CELLS COUNTED % (AUTO) 100 %; WHITE BLOOD COUNT 10.3 10^3/uL (4.0-10.5)
[2019-12-31 00:50] LABS: ALBUMIN 4.7 g/dL (3.5-5.0); ALKALINE PHOSPHATASE 99 U/L (38-126); ANION GAP 14 (5-19); ASPARTATE AMINO TRANSFERASE 21 U/L (14-36); BILIRUBIN,DIRECT 0.3 mg/dL (0.0-0.4); BILIRUBIN,TOTAL 0.5 mg/dL (0.2-1.3); BLOOD UREA NITROGEN 12 mg/dL (7-20); CALCIUM 9.9 mg/dL (8.4-10.2); CARBON DIOXIDE 22 mmol/L (22-30); CHLORIDE 106 mmol/L (98-107); GLUCOSE 127 mg/dL (75-110); POTASSIUM 3.7 mmol/L (3.6-5.0); TOTAL PROTEIN 8.1 g/dL (6.3-8.2)
[2019-12-31 01:29] VITALS: BP 156/98
--- NOTE | 2020-01-01 20:16 | EKG REPORT ---
SEVERITY:- NORMAL ECG - SINUS RHYTHM : Confirmed by: Elias Tinoco MD 01-Jan-2020 20:15:49
== END 2019-12-31 02:01 | disposition home or self-care (01) ==
LOC: ER 20:31
DX: J98.01 Acute bronchospasm (principal); I10 Essential (primary) hypertension; R06.02 Shortness of breath; R05 Cough; R11.0 Nausea; R06.2 Wheezing
CPT/HCPCS: 93005; 94640 ×2; 99285; 36415; 85025; 80053; 84484; 71045; 93010; J3490; J7512; J7613